=== PATIENT | female | born 1995 | race American Indian/Alaskan Native ===

== ENCOUNTER 2017-05-29 00:14 | Emergency (ER) | payer OTHER ==
[2017-05-29 01:05] LABS: Hematocrit 36.5 % (30.3-42.9); Hemoglobin 12.2 gm/dl (10.1-14.3); Mean Corpuscular HGB Conc 33 % (30-34); Mean Corpuscular Hemoglobin 28 pg (28-32); Mean Corpuscular Volume 83 fl (79-97); Platelet Count 298 K/mm3 (140-440); Red Blood Count 4.38 M/mm3 (3.65-5.03); Red Cell Distribution Width 15.1 % (13.2-15.2)
[2017-05-29 01:15] LABS: BUN/Creatinine Ratio 12; Blood Urea Nitrogen 7 mg/dL (7-17); Hemolysis Index 3
[2017-05-29 02:07] LABS: Bacteria,Urine 3+ /HPF (Negative); Bilirubin,Urine NEG (Negative); Blood,Urine SM (Negative); Color,Urine Yellow (Yellow); Mucus,Urine 2+ /HPF
[2017-05-29 02:26] LABS: WBC,Urine > 182.0 /HPF (0.0-6.0)
[2017-05-29] MEDS ORDERED: REGLAN IV ONE (02:49)
[2017-05-29] MEDS ORDERED: TORADOL IV ONE (02:49)
[2017-05-29] MEDS ORDERED: ROCEPHIN/NS 1 GM/50 ML 1 GM/50 ML BAG IV ONE ×2 (02:49→04:00)
[2017-05-29] MEDS ORDERED: NACL 0.9% 1000 ML 1,000 ML IV ONE (02:49)
--- NOTE | 2017-05-29 03:05 | Ultrasound Report ---
FINAL REPORT PROCEDURE: US RENAL RT TECHNIQUE: Real-time sonography in multiple planes of the kidneys, ureters and urinary bladder was performed with image documentation. CPT 81238 HISTORY: right back pain COMPARISON: No prior studies are available for comparison. FINDINGS: RIGHT kidney: Normal echotexture. No focal renal mass, calculus, or hydronephrosis. Length: 11.8 cm. LEFT kidney: Not imaged Bladder: Not imaged. IMPRESSION: Normal right kidney..
[2017-05-29] MEDS ORDERED: cefTRIAXone 1 GM in NACL 0.9% 20 ML IV ONE (03:15)
--- NOTE | 2017-05-29 03:15 | Ultrasound Report ---
FINAL REPORT PROCEDURE: US OB > = 14 WEEKS FETUS TECHNIQUE: Real-time transabdominal sonography of the uterus, placenta, amniotic fluid, adnexa, and fetus was performed with image documentation. Measurements were obtained to determine age/size. M-mode Doppler was used to document heartbeat. CPT 29083 HISTORY: back pain COMPARISON: No prior studies are available for comparison. FINDINGS: ADDITIONAL GESTATION: Yes, reported separately. GENERAL: FETUS A: Position: Breech Placental position: Posterior, without previa. Amniotic fluid volume: Normal. MATERNAL: Uterus: Within normal limits. Cervical length: 3.3 cm. Internal Os: Closed. FETUS: Heart rate and rhythm: 179 beats per minute anatomic survey: Not performed MEASUREMENTS: BPD: 2.7 centimeters corresponding to 14 weeks and 6 days HC: 9.4 centimeters corresponding to 14 weeks and 2 days AC: 9.2 centimeters correspond at 15 weeks and 3 days FL: 1.6 centimeters correspond to 14 weeks and 4 days Mean Gestational Age (composite criteria): 14 weeks and 6 days Ratio biometry: Normal. Estimated Weight: 110 grams. Interval growth: Appropriate. Estimated Due Date (earliest scan): 11/21/2017 IMPRESSION: FETUS A : 14 weeks and 6 days. Estimated due date: November 21, 2017. Normal survey with appropriate growth.
--- NOTE | 2017-05-29 03:16 | Ultrasound Report ---
FINAL REPORT PROCEDURE: US OB > = 14 WEEKS FETUS TECHNIQUE: Real-time transabdominal sonography of the uterus, placenta, amniotic fluid, adnexa, and fetus was performed with image documentation. Measurements were obtained to determine age/size. M-mode Doppler was used to document heartbeat. CPT 71031 HISTORY: back pain COMPARISON: No prior studies are available for comparison. FINDINGS: ADDITIONAL GESTATION: Yes, reported separately. GENERAL: FETUS b: Position: TRANSVERSE Placental position: Posterior, without previa. Amniotic fluid volume: Normal. MATERNAL: Uterus: Within normal limits. Cervical length: 3.3 cm. Internal Os: Closed. FETUS: Heart rate and rhythm: 172 BEATS PER MINUTE anatomic survey: Not performed MEASUREMENTS: BPD: 2.6 CENTIMETERS CORRESPOND TO 14 WEEKS AND 4 DAYS HC: 9.8 centimeters correspond to 14 weeks and 4 days AC: 7.6 centimeters correspond to 14 weeks FL: 1.4 centimeters correspond to 14 weeks and 1 day Mean Gestational Age (composite criteria): 14 weeks and 2 days Ratio biometry: Normal. Estimated Weight: 91 grams. Interval growth: Appropriate. Estimated Due Date (earliest scan): 11/25/2017 IMPRESSION: FETUS B : Fourteen weeks and 2 days. Estimated due date: November 25, 2017. Normal survey with appropriate growth.
--- NOTE | 2017-05-29 03:26 | Emergency Department Report ---
HPI - General Chief Complaint: Back Pain/Injury Time Seen by Provider: 05/29/17 02:06 - [facility] HPI: Room 1 The patient is a 21-year-old female presenting with a chief complaint of right flank pain. The patient states her symptoms began yesterday with discomfort in her right back which is then moved around to the right front. The patient is nausea and vomiting. Patient denies vaginal discharge, vaginal bleeding, dysuria or hematuria. Patient denies any history of fever. Patient denies anorexia. Location: [See above] Duration: Constant since yesterday Quality: Discomfort Severity: Moderate Modifying factors: [see above] Context: [see above] Mode of transportation: [not driving] ED Past Medical Hx - Past Medical History Previous Medical History?: No Additional medical history: denies - Surgical History Past Surgical History?: No Additional Surgical History: denies - Family History Family history: no significant - Social History Smoking Status: Never Smoker Substance Use Type: None (denies illicit drug use) - Medications Home Medications: Home Medications Medication Instructions Recorded Confirmed Last Taken Type Ibuprofen [Motrin 600 MG tab] 600 mg PO Q8H PRN #15 tablet 09/12/13 Unknown Rx Amoxicillin/Potassium Clav 1 each PO BID #20 tablet 05/29/17 Unknown Rx [Augmentin 875-125 Tablet] Ibuprofen [Motrin 600 MG tab] 600 mg PO Q8H PRN #20 tablet 05/29/17 Unknown Rx ED Review of Systems ROS: Stated complaint: BACK PAIN, SIDE PAIN Other details as noted in HPI Constitutional: denies: fever Gastrointestinal: abdominal pain, nausea, vomiting Genitourinary: denies: dysuria, hematuria, discharge, abnormal menses Musculoskeletal: back pain Skin: denies: rash, lesions Physical Exam - Physical Exam Vital Signs: Vital Signs 05/29/17 00:40 Temperature 98.8 F Pulse Rate 125 H Respiratory 22 Rate Blood Pressure 127/83 O2 Sat by Pulse 100 Oximetry Vital Signs 05/29/17 05/29/17 00:40 03:32 Temperature 98.8 F Pulse Rate 125 H 95 H Respiratory 22 16 Rate Blood Pressure 127/83 Blood Pressure 110/61 [Left] O2 Sat by Pulse 100 99 Oximetry Physical Exam: GENERAL: The patient is well-developed well-nourished female lying on stretcher appearing to be in mild discomfort. [] HEENT: Normocephalic. Atraumatic. Extraocular motions are intact. Patient has moist mucous membranes. NECK: Supple. Trachea midline CHEST/LUNGS: Clear to auscultation. There is no respiratory distress noted. HEART/CARDIOVASCULAR: Regular. There is tachycardia. There is no gallop rub or murmur. ABDOMEN: Abdomen is soft, nontender. Patient has normal bowel sounds. There is no abdominal distention. SKIN: There is no rash. There is no edema. There is no diaphoresis. NEURO: The patient is awake, alert, and oriented. The patient is cooperative. The patient has normal speech MUSCULOSKELETAL: There is right CVA tenderness. There is no evidence of acute injury. ED Course Vital Signs 05/29/17 00:40 Temperature 98.8 F Pulse Rate 125 H Respiratory 22 Rate Blood Pressure 127/83 O2 Sat by Pulse 100 Oximetry ED Medical Decision Making - Lab Data Result diagrams: 05/29/17 00:55 05/29/17 00:55 Laboratory Tests 05/29/17 05/29/17 05/29/17 00:55 00:55 00:55 WBC 16.5 H RBC 4.38 Hgb 12.2 Hct 36.5 MCV 83 MCH 28 MCHC 33 RDW 15.1 Plt Count 298 Seg Neutrophils % Steel Tester Sodium 133 L Potassium 3.8 Chloride 96.8 L Carbon Dioxide 21 L Anion Gap 19 BUN 7 Creatinine 0.6 L Estimated GFR > 60 BUN/Creatinine Ratio 12 Glucose 163 H Calcium 8.0 L HCG, Quant 218112 H Urine Color Urine Turbidity Urine pH Ur Specific [place] Urine Protein Urine Glucose (UA) Urine Ketones Urine Blood Urine Nitrite Urine Bilirubin Urine Urobilinogen Ur Leukocyte Esterase Urine WBC (Auto) Urine RBC (Auto) U Epithel Cells (Auto) Urine Bacteria (Auto) Urine WBC Clumps Urine Mucus Urine Yeast (Budding) 05/29/17 01:48 WBC RBC Hgb Hct MCV MCH MCHC RDW Plt Count Seg Neutrophils % Sodium Potassium Chloride Carbon Dioxide Anion Gap BUN Creatinine Estimated GFR BUN/Creatinine Ratio Glucose Calcium HCG, Quant Urine Color Yellow Urine Turbidity Cloudy Urine pH 5.0 Ur Specific [place] 1.016 Urine Protein 100 mg/dl Urine Glucose (UA) Neg Urine Ketones Neg Urine Blood Sm Urine Nitrite Neg Urine Bilirubin Neg Urine Urobilinogen 4.0 Ur Leukocyte Esterase Lg Urine WBC (Auto) > 182.0 H Urine RBC (Auto) 10.0 U Epithel Cells (Auto) 23.0 H Urine Bacteria (Auto) 3+ Urine WBC Clumps 2+ Urine Mucus 2+ Urine Yeast (Budding) Not Reportable - Radiology Data Radiology results: report reviewed (pelvic ultrasound, right renal ultrasound), image reviewed (pelvic ultrasound, right renal ultrasound) - Differential Diagnosis pyelonephritis, renal colic Critical care attestation.: If time is entered above; I have spent that time in minutes in the direct care of this critically ill patient, excluding procedure time. ED Disposition Clinical Impression: Acute pyelonephritis, Acute right flank pain, Nausea & vomiting Disposition: TO HOME OR SELFCARE Is pt being admited?: No Does the pt Need Aspirin: No Condition: Stable Instructions: Acute Pyelonephritis (ED) Additional Instructions: Return to the emergency department immediately should you develop worsening symptoms, fever, inability to tolerate food or liquid or any other concerns. Prescriptions: Amoxicillin/Potassium Clav [Augmentin 875-125 Tablet] 1 each PO BID #20 tablet Ibuprofen [Motrin 600 MG tab] 600 mg PO Q8H PRN #20 tablet PRN Reason: Pain Referrals: PRIMARY CARE,MD [Primary Care Provider] - 3-5 Days your CARDIOLOGY NURSE PRACTITIONER, [facility] [Other] - MICHELLE Time of Disposition: 03:42
[2017-05-29 03:30] LABS: Total Cells Counted 100
[2017-05-29 03:31] LABS: Band Neutrophils # (Manual) 1.2 K/mm3; Basophils % (Manual) 0 % (0.0-1.8); Eosinophils % (Manual) 0 % (0.0-4.3)
[2017-05-29 03:32] LABS: Anisocytosis 1+; Hypochromasia 1+
[2017-05-29 03:33] VITALS: BP 110/61
== END 2017-05-29 04:18 | disposition home or self-care (01) ==
LOC: ED 00:14
DX: O26.892 Other specified pregnancy related conditions, second trimester (principal); N10 Acute pyelonephritis; Z3A.14 14 weeks gestation of pregnancy
CPT/HCPCS: 36415; 76775; 76805; 76810; 80048; 81001; 84702; 85007; 85025; 96374; 96375; 99284; J0696; J1885; J2765; J7030